=== PATIENT | female | born 1995 | race Caucasian/White ===

== ENCOUNTER 2016-05-25 22:14 | Observation (INO) | payer OTHER ==
[~2016-05-25] VITALS: Ht 169.6 cm; Wt 89.9 kg
[~2016-05-25 22:14] MED LIST: FAMO20T PO; ONDA4TAB6 PO; OXYC1TAB24 PO; PANT40TA3 PO; PNV91TAB3 PO; SULF1TAB35 PO
[2016-05-25 22:16] VITALS: BP 142/93; PULSE 97; RESP 28; O2SAT 97
--- NOTE | 2016-05-25 22:28 | ED.REPORT ---
HPI-Abd Pain F Under 40 Date of Service May 25, 2016 ED Provider: Aguilar Gordon MD A 20 year old female with a medical history including biliary colic and gallstones presents to the ED with severe abdominal pain onset just prior to arrival, after eating a grilled cheese sandwich. The patient was diagnosed with gallstones while but had to wait until after delivery for surgery. She delivered her child on 04/04/16 and has a cholecystectomy scheduled for tomorrow morning. She denies fever or dysuria. The patient was seen in the ED on 04/30/16 with similar symptoms. Nursing Notes Stated Complaint: ABDOMINAL PAIN Chief Complaint: Female Abdominal Pain Nursing Notes Reviewed: Yes Allergies: Coded Allergies: No Known Allergies (Verified Allergy, Unknown, 05/25/16) Scheduled Famotidine (Pepcid) 20 Mg Tablet 20 MG PO BID Pantoprazole DR (Pantoprazole DR) 40 Mg Tablet.dr 40 MG PO DAILY Pnv95/Ferrous Fumarate/FA ( Caplet) 28 Mg Iron-800 Mcg Tablet 1 EACH PO DAILY Sulfamethoxazole/Trimeth 800-160 mg (Bactrim DS 800-160 mg) 1 Each Tablet 1 TABLET PO BID Scheduled PRN Ondansetron (Zofran) 4 Mg Tablet 4 MG PO Q4H PRN PRN For Nausea oxyCODONE-Acetaminophen 5-325 mg (oxyCODONE-Acetaminophen 5-325 mg) 1 Each Tablet 1 TAB PO Q6H PRN PRN For Pain General Time Seen by MD: 22:27 Chief Complaint Abdominal pain Hx Obtained From: Patient Arrived By: Walk-in Sudden in Onset?: Yes Onset Occurred: Just prior to arrival Symptom Duration: Since onset Location: : Diffuse Quality: Painful Severity: Current: Severe Severity: Maximum: Severe Associated with: Reports: Dysuria, Denies: Fever Pertinent Negative: Relieved by nothing Context Related History: Reports: Cholelithiasis Recent Healthcare: Recent doctor visit, Previous diagnosis Similar Sx Previous: Yes Past Medical History Past Medical History Notes: PCP: Dr. Iram Veliz Past Medical History Biliary Colic - known gallstones Anxiety "Congenital Bunions" Reports: Depression Past Surgical History Bunionectomy D&C Isordil Foot surgeries Ophthalmic surgery D&C Sebaceous cyst removal Family History non-contributory Smoking History Never Smoker Social History Alcohol Use: In recovery Drug Use: In recovery, THC Other Social History: Good social support, Lives with children, Local resident Ambulatory Status Independent Review of Systems Constitutional: Denies: Fever Respiratory: Denies: Non-productive cough, Shortness of breath GI: Reports: Abdominal pain Female: Denies: Dysuria Complete sys rev & neg: except as marked. Physical Exam Initial Vital Signs Vital Signs (First) Date Time Temp Pulse Resp B/P Pulse Ox O2 Delivery O2 Flow Rate FiO2 05/25/16 22:16 36.6 97 28 142/93 97 Room Air Initial VS: Reviewed, Vital signs abnormal Head / Eyes: Atraumatic, Normocephalic ENT: Conjunctiva normal, No scleral icterus Neck: Supple, Full range of motion Skin: Warm, Dry, No cyanosis Neurologic: Alert, Oriented, Nonfocal General/Constitutional: Awake, Alert Distress / Hydration: Positive: Distress severe (pain) Behavior: Positive: Agitated, Hyperventilating Respiratory / Chest: Breath sounds NL, Breath sounds = bilat, No respiratory distress Cardiovascular: Heart rate NL, Regular rhythm, Heart sounds NL Abdomen: Soft Tenderness/Guarding/Rebound: Positive: Tender RUQ... (Moderate) Back: Full range of motion Left CVAT Interpretation & Diagnostics Lab Results Interpretation Result Diagram: 05/25/165 05/25/16 2235 Test 05/25/16 22:35 White Blood Count 7.9th/mm3 (3.8-10.1) Red Blood Count 4.40mil/mm3 (3.90-5.20) Hemoglobin 12.4g/dL (12.0-15.6) Hematocrit 38.0% (35.0-46.0) Mean Corpuscular Volume 86.4fL (81-100) Mean Corpuscular Hemoglobin 28.2pg (27.0-35.0) Mean Corpuscular Hemoglobin Concent 32.6% (32.0-37.0) Red Cell Distribution Width 12.7% (12.3-15.4) Platelet Count 275bil/L (150-400) Neutrophils (%) (Auto) 39.6% (40-74) Lymphocytes (%) (Auto) 48.5% (14-46) Monocytes (%) (Auto) 8.5% (4-12) Eosinophils (%) (Auto) 2.5% (0-5) Basophils (%) (Auto) 0.3% (0-3) Prothrombin Time 9.4sec (8.1-12.5) Prothromb Time International Ratio 0.88ratio Sodium Level 140mEq/L (134-144) Potassium Level 4.1mEq/L (3.5-5.2) Chloride Level 100mEq/L (97-108) Carbon Dioxide Level 26mmol/L (18-29) Blood Urea Nitrogen 12mg/dL (6-20) Creatinine 0.57mg/dL (0.57-1.00) Estimat Glomerular Filtration Rate 194mL/min (>59) Glucose Level 86mg/dL (60-99) Lactic Acid Level 1.3mmol/L (0.4-2.0) Calcium Level 9.6mg/dL (8.5-10.1) Magnesium Level 2.0mg/dL (1.6-2.6) Total Bilirubin < 0.2mg/dL (0.0-1.2) Aspartate Amino Transf (AST/SGOT) 22U/L (0-50) Alanine Aminotransferase (ALT/SGPT) 27U/L (0-32) Alkaline Phosphatase 58U/L (25-150) Total Protein 7.5g/dL (6.4-8.4) Albumin 4.4g/dL (3.4-5.0) Lipase 50U/L (13-60) Lab values outside NL range: no clinical significance. Re-Eval/Medical Decision Med Decision/Clinical Course 20-year-old female with known cholelithiasis who is scheduled for cholecystectomy tomorrow. She had one last meal before becoming him by mouth and an onset of right upper quadrant abdominal pain, more severe than usual. She has not had a fever. Labs are totally normal. There was some difficulty getting her pain under control. Her case was discussed with Dr. Gordon and she will be admitted to the hospital for her surgery as scheduled in the morning. Transitional orders were written. Source of Hx: Old records Re-Evaluation/Progress #1: Time of Eval: 22:42 Patient Status: Condition improved, Moderate relief Re-Evaluation/Progress Note: Patient's pain has reduced significantly. Re-Evaluation/Progress #2: Time of Eval: 23:50 Patient Status: Condition worsened Re-Evaluation/Progress Note: The patient's pain has returned. Discussed with patient lab results, diagnosis, and plan for admit. Patient agrees with plan for care and all questions were addressed. Consultation : Referral / Consult Name: Jaren Gordon MD Consulted With: Trauma surgeon Call Returned at: 23:47 Sanitation Inspector: Agrees with eval, Agrees with plan, Accepts admit Counseled Regarding: Diagnosis, Lab results, Need for admission Discharge & Departure Primary Impression: Biliary colic Additional Impression: Cholelithiasis Cholelithiasis location: gallbladder Cholecystitis presence: without cholecystitis Biliary obstruction: without biliary obstruction Qualified Code : K80.20 - Calculus of gallbladder without cholecystitis without obstruction Disposition: ADMITTED TO HOSPITAL Discharge Condition All VS Reviewed: Yes Condition: Stable Referrals: NOPCP (PCP) Scribe Attestation Portions of this note were transcribed by Beatris De Paz. I, Dr. Gordon, personally performed the history, physical exam, and medical decision-making; I reviewed and confirmed the accuracy of the information in the transcribed note. Signed by: Edd Ward, 05/25/2016, 23:58 Aguilar Gordon MD May 25, 2016 22:28 BEATRIS DE PAZ May 25, 2016 22:30
[2016-05-25] MEDS ORDERED: 0.9% Sodium Chloride 1,000 ML IV ONE (22:30)
[2016-05-25] MEDS: Ondansetron 2 mg/mL 2 mL Inj IVPUSH PRN ×2 (22:35→22:53)
[2016-05-25] MEDS: HYDROmorphone 0.5 mg/0.5 mL iSecure Syringe IVPUSH PRN ×4 (22:35→23:32)
[2016-05-25 23:04] LABS: BASOPHILS % (AUTO) 0.3 % (0-3); EOSINOPHILS % (AUTO) 2.5 % (0-5); INR 0.88 ratio; MONOCYTES % (AUTO) 8.5 % (4-12); Mean Corpuscular Hemoglobin 28.2 pg (27.0-35.0); Mean Corpuscular Volume 86.4 fL (81-100); NEUTROPHILS % (AUTO) 39.6 % (40-74); Platelet Count 275 bil/L (150-400)
[2016-05-25 23:14] LABS: Lipase 50 U/L (13-60)
[2016-05-25] MEDS ORDERED: HYDROmorphone 1 mg/mL Inj IVPUSH PRN (23:50)
[2016-05-25] MEDS ORDERED: Ondansetron 2 mg/mL 2 mL Inj IVPUSH PRN (23:55)
[2016-05-26] VITALS (8 sets, daily range): BP systolic 105–139; BP diastolic 56–83; PULSE 70–109; RESP 14–21; O2SAT 96–100
[2016-05-26] MEDS: Dextrose 5% 0.45% NaCl 1,000 ML IV SCH ×2 (00:06→09:16)
[2016-05-26] MEDS: Ondansetron 2 mg/mL 2 mL Inj IVPUSH PRN ×5 (02:40→12:47)
[2016-05-26] MEDS: HYDROmorphone 1 mg/mL Inj IVPUSH PRN ×5 (02:41→12:46)
--- NOTE | 2016-05-26 07:37 | NUR ---
Admission note Pt arrived from ER to [id number] approx at 0130. Admission assessment and screening completed. VSS. Medicated for pain and nausea. pump provided for pt. She is using it appropriately. No overt complications noted.
--- NOTE | 2016-05-26 09:40 | NUR ---
Pain/Transfer to OR Pt rating abd pain at 10/10, PRN IV Dilaudid effective for this. Pt reports intermittent nausea, PRN Zofran effective. No emesis. VSS, pt now transferred to OR for scheduled surgery. Pt calm and coop with care.
[2016-05-26] MEDS ORDERED: Lactated Ringer's 500 ML IV PRN (10:02)
[2016-05-26] MEDS ORDERED: Lactated Ringer's 1,000 ML IV SCH (10:02)
--- NOTE | 2016-05-26 10:04 | PCM.HPANE ---
Patient Data Surgeon Admitting Provider:Jaren Gordon MD Attending Provider:Jaren Gordon MD Primary Care Physician:Master Guillen MD Other Provider:Eitan Myles Anesthesia Reason for Visit Billiary Colic,Cholelithiasis Ht/WT & BMI Height (Feet): 5 Height (Inches): 6.75 Weight (Kilograms): 89.900 Body Mass Index 31.11 Allergies Coded Allergies: No Known Allergies (Verified Allergy, Unknown, 05/25/16) Past Anesthesia History Anesthesia History: Denies:: Anesthesia Reactions, Malignant Hyperthermia Diabetes History Hx Diabetes?: No MRSA MRSA: No Medications Hypertension Medication: No Home Meds Incl Beta Diamond: No Reported Medications Ondansetron (Zofran)4 Mg Tablet4 Mg PO Q4H PRN For Nausea 05/24/16 Sulfamethoxazole/Trimeth 800-160 mg (Bactrim DS 800-160 mg)1 Each Tablet1 Tablet PO BID Ref 0 05/24/16 Pnv95/Ferrous Fumarate/FA ( Caplet)28 Mg Iron-800 Mcg Tablet1 Each PO DAILY 05/24/16 Famotidine (Pepcid)20 Mg [id number] Mg PO BID 05/24/[address] 40 Mg Tablet.dr40 Mg PO DAILY Ref 0 05/24/16 oxyCODONE-Acetaminophen 5-325 mg 1 Each Tablet1 Tab PO Q6H PRN For Pain Ref 0 05/24/16 Discontinued Scripts Ibuprofen 600 Mg [id number] Mg PO Q6H PRN For Mild Pain #30 TABLET Prov:VITALIY ELKINS DO 04/05/16 Docusate Sodium (Colace)100 Mg Sejkuau444 Mg PO BID #30 CAPSULE Prov:VITALIY ELKINS DO 04/05/16 Famotidine (Pepcid)20 Mg Npovtq98 Mg PO BID #60 TABLET Prov:Edouard Matute MD 03/10/16 Ondansetron ODT 8 Mg Tab.rapdis8 Mg PO TID PRN For Nausea #10 TABLET Prov:Aguilar Gordon MD 11/26/15 History History of ENT Problems?: No Hx of Heart Problems?: No Cardiovascular History: Denies:: Congestive Heart Failure Heart Murmur Hypertension Irregular Heartbeat Hx of Respiratory Problem?: No Respiratory History: Denies:: Asthma COPD Emphysema Oxygen Administration Tuberculosis Use of C-PAP Machine Hx Neurologic Problems?: No Neurological History: Positive for:: Headaches Denies:: CVA Multiple Sclerosis Parkinson's Disease Seizures Hx of GI Problems?: Yes Gastrointestinal History: Positive for:: Gall Bladder Disease (current admission problem) Gastroesphageal Reflux Heartburn Denies:: Diverticulitis Gastrointestinal Bleeding Hepatitis Hiatal Hernia Rectal Bleeding Hx of Problems?: No Genitourinary History: Positive for:: Urinary Tract Infection (HX OF) Female Hx: Denies:: Currently (childbirth here 04/05/16, unknown if lactating) Endometriosis Pelvic Inflammatory Problems with Breasts? Skin History: Denies:: History Skin Disorders? Hx Musculoskeletal Problems?: Yes Musculoskeletal History: Positive for:: Musculoskeletal Trauma (hx of bunions , foot surgery) Denies:: Back Injury Joint Replacement Hx of Psycho/Social Problems?: Yes Psycho Social History: Positive for:: Anxiety Hx Depression Denies:: Bipolar Disorder Suicide Attempt Hx Surgeries?: Yes (Foot surgeries x7) Hx Any Other Health Problems?: Yes Other History: Denies:: Cancer Endocrine Disease Hospitalization Thyroid Disease History Blood Transfusions: Positive for:: Accept Blood Products? Denies:: Blood Transfusions Hx Diabetes: No Hx Alcohol Use: NoHx Substance Use: No Smoking Status: Never Smoker Have You Smoked inLast 12 mo: No Stop/Bang Treated for Sleep Apnea?: No Do You Have a CPAP Machine?: No S-Snoring: Do You Snore Loudly: No T-Tired: feel tired, fatigued: No O-Obsered: Observed not breath: No P-Blood Pressure: treated: No B- Body Mass Index > 35 kg/m2: No A- Age over 50: No N- Neck Large Circumference: No G- Gender Male: No GLEN Total Score: 0 GLEN Risk Assessment: Low Risk, <3 Yes Risk Assessment Category Category 1A: Patient has history of documented sleep apnea, and HAS NOT received any narcotic, sedative or anesthesia administration during this stay. Category 1B: Patient has history of documented sleep apnea, and HAS received any narcotic , sedative or anesthesia administration during this stay Category 2: Patient has SUSPECTED Obstructive Sleep Apnea, and HAS received any narcotic , sedative or anesthesia administration during this stay. Category 3: Patient has SUSPECTED Obstructive Sleep Apnea and HAS NOT received narcotic, sedative or anesthesia administration during this stay. Category 4: Outpatient in Procedural Areas with known sleep apnea or who screen positive for High Risk via the STOP/BANG questionnaire. Exam Exam Vital Signs Vital Signs Date Time Temp Pulse Resp B/P Pulse Ox O2 Delivery O2 Flow Rate FiO2 05/26/16 08:14 36.6 81 19 105/68 96 Room Air 05/26/16 01:56 75 20 115/47 99 Room Air 05/26/16 01:45 36.8 72 18 109/70 99 Room Air General Appearance: Alert, Oriented X3, Cooperative, No Acute Distress HEENT/AIRWAY: MP 2 Lungs: Clear to Auscultation, Normal Air Movement Heart: Exam Unremarkable, Regular Rate/Rhythm, No Murmurs/Rubs/Gallops Meds/Labs/Diagnostics Admission Meds Current Medications Sodium Chloride (Normal Saline) 1,000 ml @ 0 mls/hr Q0M ONCE IV Last administered on 05/25/16 22:35; Start 05/25/16 at 22:30; Stop 05/25/16 at 22:32; Status DC Lorazepam 0.5 mg 0.5 mg ONCE ONCE IVPUSH Last administered on 05/25/16 23:15; Start 05/25/16 at 23:10; Stop 05/25/16 at 23:11; Status DC Dextrose/Sodium Chloride (D5 1/2 Normal Saline) 1,000 ml @ 100 mls/hr Q10H IV Last administered on 05/26/16 00:06; Start 05/25/16 at 23:54 Labs Test 05/25/16 22:35 05/26/16 01:58 White Blood Count 7.9th/mm3 (3.8-10.1) Red Blood Count 4.40mil/mm3 (3.90-5.20) Hemoglobin 12.4g/dL (12.0-15.6) Hematocrit 38.0% (35.0-46.0) Mean Corpuscular Volume 86.4fL (81-100) Mean Corpuscular Hemoglobin 28.2pg (27.0-35.0) Mean Corpuscular Hemoglobin Concent 32.6% (32.0-37.0) Red Cell Distribution Width 12.7% (12.3-15.4) Platelet Count 275bil/L (150-400) Neutrophils (%) (Auto) 39.6% (40-74) Lymphocytes (%) (Auto) 48.5% (14-46) Monocytes (%) (Auto) 8.5% (4-12) Eosinophils (%) (Auto) 2.5% (0-5) Basophils (%) (Auto) 0.3% (0-3) Prothrombin Time 9.4sec (8.1-12.5) Prothromb Time International Ratio 0.88ratio Sodium Level 140mEq/L (134-144) Potassium Level 4.1mEq/L (3.5-5.2) Chloride Level 100mEq/L (97-108) Carbon Dioxide Level 26mmol/L (18-29) Blood Urea Nitrogen 12mg/dL (6-20) Creatinine 0.57mg/dL (0.57-1.00) Estimat Glomerular Filtration Rate 194mL/min (>59) Glucose Level 86mg/dL (60-99) Lactic Acid Level 1.3mmol/L (0.4-2.0) Calcium Level 9.6mg/dL (8.5-10.1) Magnesium Level 2.0mg/dL (1.6-2.6) Total Bilirubin < 0.2mg/dL (0.0-1.2) Aspartate Amino Transf (AST/SGOT) 22U/L (0-50) Alanine Aminotransferase (ALT/SGPT) 27U/L (0-32) Alkaline Phosphatase 58U/L (25-150) Total Protein 7.5g/dL (6.4-8.4) Albumin 4.4g/dL (3.4-5.0) Lipase 50U/L (13-60) Urine HCG, Qualitative Negative (Negative) Hold Urine Received (Received) Plan Impression Patient chart reviewed, patient interviewed and anesthestic plan with risks, benefits, and alternatives discussed, and informed consent obtained. NPO Status: 9pm ASA Physical Status: ASA2 Mod Systemic Disease Anesthetic Plan: GA Bene/Risks/Altern/Consents: Yes HP Complete Prior to Induction: Yes Devante Wolf MD May 26, 2016 09:03
[2016-05-26] MEDS ORDERED: Atropine 0.4 mg/mL Inj IVPUSH PRN (10:05)
[2016-05-26] MEDS ORDERED: hydrALAZINE 20 mg/mL Inj IVPUSH PRN (10:05)
[2016-05-26] MEDS ORDERED: MetoCLOpramide 5 mg/mL 2 mL Inj IVPUSH PRN (10:05)
[2016-05-26] MEDS ORDERED: EPHEDrine Sulfate 50 mg/mL Inj IVPUSH PRN (10:05)
[2016-05-26] MEDS ORDERED: hydrOXYzine Inj 25 MG/1 mL SDV IM PRN (10:05)
[2016-05-26] MEDS ORDERED: Phenylephrine 10,000 mCg/mL Inj IVPUSH PRN (10:05)
[2016-05-26] MEDS ORDERED: HYDROmorphone 1 mg/mL Inj IVPUSH PRN (10:05)
[2016-05-26] MEDS ORDERED: EPHEDrine Sulfate 50 mg/mL Inj IM PRN (10:05)
[2016-05-26] MEDS ORDERED: Ondansetron 2 mg/mL 2 mL Inj IVPUSH PRN (10:05)
[2016-05-26] MEDS ORDERED: Labetalol 5 mg/mL 4 mL Inj IV PRN (10:05)
[2016-05-26] MEDS: Lactated Ringer's 1,000 ML IV ONE ×2 (10:15→11:24)
--- NOTE | 2016-05-26 10:25 | HP ---
[address] [address] HISTORY AND PHYSICAL PATIENT: DIEGO POLLOCK : 1995 MR#: [id number] ADMIT: 05/26/2016 JOB ID: [id number] DATE: 05/26/2016 CHIEF COMPLAINT: Symptomatic cholelithiasis. HISTORY OF PRESENT ILLNESS: The patient is a 20-year-old female familiar to me, as I saw her in the office in consultation for symptomatic cholelithiasis. She was actually scheduled to undergo elective outpatient cholecystectomy today. Last night, however, after eating a grilled cheese sandwich, she developed a recurrent episode of right upper quadrant abdominal pain. This pain persisted, prompting a visit to the emergency department. Given the intractable nature of her pain, she was admitted to my service overnight for pain control with a plan to proceed with cholecystectomy today. Past medical, past surgical, social, and family history reviewed and unchanged from the original outpatient consultation. PHYSICAL EXAM: She has remained afebrile. This morning, her temperature is 36.6 degrees, heart rate 81 beats per minute. Blood pressure is 105/68. She is satting 96% on room air with a respiratory rate of 19 breaths per minute. In general, she appears uncomfortable but in no acute distress. Cardiovascular: She has a regular rate and rhythm. No appreciated murmurs, rubs, gallops. Pulmonary: Lungs clear to auscultation bilaterally. Abdomen is soft, nondistended but focally tender in the right upper quadrant. LABORATORIES: Her white blood cell count yesterday evening was normal at 7.9. Hematocrit was 38. Her LFTs were all within normal limits. ASSESSMENT AND PLAN: This is a 20-year-old female with symptomatic cholelithiasis, scheduled to undergo elective laparoscopic cholecystectomy today who was admitted last night for pain control. The plan is to proceed with laparoscopic cholecystectomy. I anticipate she may be able to go home after the procedure.
[2016-05-26] MEDS ORDERED: Bupivacaine-MPF 0.5% W/EPI 30 mL Inj INJ ONE (10:43)
--- NOTE | 2016-05-26 11:01 | NUR ---
Social Work Note: Screen Note Data& Assessment: EMR reviewed. Patient is a 20 year old female admitted on 05/26/2015 for Billiary Colic and Cholelithiasis. Pt has Josue WARNER for insurance coverage. Patient sees Master Guillen MD for primary care. Pt lives in [facility] and is independent at baseline. Pt is currently Stand by assist in her room. No discharge needs identified at this time. SW to continue to follow if any needs arise. Plan: Anticipated discharge home via POV when medically ready. No discharge needs identified at this time. SW to continue to follow if any needs arise. Kelsi Chamberlain LMSW, ACM
[2016-05-26] MEDS ORDERED: oxyCODONE-Acetamin 5-325 mg Tablet PO PRN (11:30)
[2016-05-26] MEDS: fentaNYL-PF 50 mCg/mL 2 mL Inj IVPUSH PRN ×2 (11:37→11:55)
--- NOTE | 2016-05-26 11:44 | PCM.ANEP1 ---
Post Anesthesia Phase 1 PACU Phase 1 Assessment Vital Signs Vital Signs Date Time Temp Pulse Resp B/P Pulse Ox O2 Delivery O2 Flow Rate FiO2 05/26/16 08:14 36.6 81 19 105/68 96 Room Air Anesthetic Administered: GA Level of Alertness: Awake, talking HERNANDEZ's with Equal Strength: Yes Pain: Yes (fentanyl given in PACU) Nausea or Vomiting: No Oxygen Delivery: Nasal Cannula Lungs: Clear to Auscultation, Normal Air Movement Summary VSS Devante Wolf MD May 26, 2016 11:44
--- NOTE | 2016-05-26 11:47 | OP ---
[address] [address] OPERATIVE REPORT PATIENT: DIEGO POLLOCK : 1995 MR#: [id number] ADMIT: 05/26/2016 JOB ID: [id number] DATE OF SURGERY: 05/26/2016 ANESTHESIA: General. PREOPERATIVE DIAGNOSIS(ES): Symptomatic cholelithiasis. POSTOPERATIVE DIAGNOSIS(ES): Symptomatic cholelithiasis. OPERATIVE PROCEDURE: Laparoscopic cholecystectomy. SURGEON: Dr. Jaren Gordon. ASSEMBLER RUBBER FOOTWEAR: Nadya Nicholas PA-C (the talent acquisition assistant was required for the safe and timely completion of the case). COMPLICATIONS: None. ESTIMATED BLOOD LOSS: 25 mL. CONDITION: Satisfactory. SPECIMEN: Gallbladder. FINDINGS: The gallbladder appeared minimally inflamed. INDICATION/SIGNIFICANT HISTORY: The patient is a 20-year-old female who has been experiencing episodic postprandial right upper quadrant abdominal pain. Ultrasound demonstrated cholelithiasis. She was scheduled for elective cholecystectomy today. However, last night she had a recurrent episode prompting a visit to the emergency department and hospitalization. Will proceed with a cholecystectomy as planned. OPERATIVE TECHNIQUE: The patient was taken to the operating room and placed in the supine position. General anesthesia was administered and the abdomen was prepped and draped in a standard surgical fashion. A procedural pause was performed. The abdomen was entered using a small supraumbilical incision with a 10 mm Optiview trocar. Pneumoperitoneum was achieved without complication. Local anesthetic was injected, followed by insertion of 5 mm ports in the subxiphoid as well as two in the right upper quadrant. There were quite a few adhesions to the gallbladder which were taken down. The gallbladder was then grasped and retracted cephalad. Dissection was begun to identify the cystic duct and cystic artery. The artery was avulsed off the gallbladder during the dissection. A clip was placed in this. Eventually the cystic duct was fully exposed and the inferior portion of the gallbladder was dissected off the cystic plate. Three clips were placed on the cystic duct and the cystic duct transected sharply. The remainder of the dissection of the gallbladder off the cystic plate was then completed. Gallbladder was removed through the umbilical port site. The surgical bed was inspected and made hemostatic where there was some bleeding on the liver edge. The umbilical fascia that was then closed using 0 PDS suture with a laparoscopic suture passer. The surgical bed was inspected one more time and found to be completely hemostatic. The lateral ports were then removed under direct visualization followed by release of pneumoperitoneum and removal of the remaining port. Skin was closed using 4-0 Monocryl. The entire procedure was well tolerated without complication.
--- NOTE | 2016-05-26 12:30 | PCM.ANEP2 ---
Post Anesthesia Evaluation ASA/CMS Post Anesthesia VS in Patient's Normal Range?: Yes Resp Stable; Airway Patent?: Yes CV Function & Hydration Stable: Yes Mental Status Recovered?: Yes Pain control Satisfactory?: Yes N/V Control Satisfactory?: Yes Devante Wolf MD May 26, 2016 12:30
[2016-05-26] MEDS ORDERED: Dexamethasone 4 mg/mL Inj ONE (15:31)
[2016-05-26] MEDS ORDERED: Succinylcholine Chloride 20 mg/mL 5 mL Inj ONE (15:31)
[2016-05-26] MEDS ORDERED: Ondansetron 2 mg/mL 2 mL Inj ONE (15:31)
[2016-05-26] MEDS ORDERED: EPHEDrine/NS 5 mg/mL 5 mL Syringe ONE (15:31)
[2016-05-26] MEDS ORDERED: Neostigmine 1 mg/mL 5 mL Inj ONE (15:31)
[2016-05-26] MEDS ORDERED: Propofol 10,000 mCg/mL 20 mL Inj ONE (15:31)
[2016-05-26] MEDS ORDERED: Rocuronium 10 mg/mL 5 mL Inj ONE (15:31)
[2016-05-26] MEDS ORDERED: fentaNYL-PF 50 mCg/mL 2 mL Inj ONE (15:31)
[2016-05-26] MEDS ORDERED: Glycopyrrolate 0.2 mg/mL 5 mL Inj ONE (15:31)
--- NOTE | 2016-05-26 15:32 | NUR ---
Discharge Note Pt back from OR at about 1245. Pt reported abd pain at 8/10, PRN Dilaudid and Percocet effective for pain. Pt eager to be discharged and go home. Reviewed discharge instructions, Rx, follow up appt, s/sx to report to MD. Care Notes provided. Pt discharge home with all belongings accompanied by grandmother.
--- NOTE | 2016-05-30 12:03 | PATH ---
SURGICAL PATHOLOGY Attending Physician:Jaren Gordon MD CASE STATUS: Signed Out PATIENT NAME: DIEGO POLLOCK PID: [id number] : 1995 DATE COLLECTED:05/26/2016 19:43 SPECIMEN: Gallbladder CLINICAL HISTORY: BILIARY COLIC, CHOLELITHIASIS 1). GALLBLADDER FINAL DIAGNOSIS: 1.GALLBLADDER: MILD CHRONIC CHOLECYSTITIS WITH CHOLELITHIASIS. NO EVIDENCE OF MALIGNANCY. ICD10 CODE K80.6 GROSS DESCRIPTION: The specimen is received in one formalin filled container labeled with the patient's name, sublabeled "gallbladder" and consists of an intact 9.0 x 4.5 x 3.5 CM gallbladder. The wall is 0.2-0.3 CM in thickness. The mucosa is a dark green in color. The lumen contains a dark green mucoid material and approximately 50-75 yellow-dan multifaceted calculi which range in size from 0.1-0.5 CM in greatest dimension. 5 account service representative sections are submitted in one cassette. 05/26/2016 DAC MICRO DESCRIPTION: See diagnosis. ICD-9 CODES: CPT CODES: 1: 18797 Electronically Signed Out Aashish Couch MD [facility]ology [facility] [address], [place] [address] Technical component performed at [facility], [facility] [address], [place], [address]
--- NOTE | 2016-08-12 12:45 | PCM.DC.SUR ---
Discharge Summary Date of Service: Date of Hospital Admission: May 25, 2016 at 01:00 Date of Operation(s): May 26, 2016 Date of Discharge: May, Diagnosis at Time of Discharge Primary Diagnosis: Symptomatic cholelithiasis Problems: Operation Laparoscopic cholecystectomy. Brief History and Physical: The patient is a 20-year-old female familiar to me, as I saw her in the office in consultation for symptomatic cholelithiasis. She was actually scheduled to undergo elective outpatient cholecystectomy today. Last night, however, after eating a grilled cheese sandwich, she developed a recurrent episode of right upper quadrant abdominal pain. This pain persisted, prompting a visit to the emergency department. Given the intractable nature of her pain, she was admitted to my service overnight for pain control with a plan to proceed with cholecystectomy today. Consultants: NONE Hospital Course: The patient went to recovery in stable condition. Pt back from OR at about 1245. Pt reported abd pain at 8/10, PRN Dilaudid and Percocet effective for pain. Pt eager to be discharged and go home. Reviewed discharge instructions, Rx, follow up appt, s/sx to report to MD. Care Notes provided. Pt discharge home with all belongings accompanied by grandmother. Pathology: Pending Disposition: Home Omeprazole (Omeprazole) 20 Mg Capsule. 20 MG PO DAILY copies to: Master Guillen MDagoNadya nicole PA-C Aug 12, 2016 12:45
== END 2016-05-26 15:32 | disposition home or self-care (01) ==
LOC: SED 22:14 → MOC 05-26 01:00
PROVIDERS: ADMIT General Practice; ATTEND General Practice
DX: K80.10 Calculus of gallbladder with chronic cholecystitis without obstruction (principal)
CPT/HCPCS: 36415; 47562; 80053; 81025; 83605; 83690; 83735; 85025; 85610; 88304; 96374; 96375; 96376; 99285; G0378; J0131; J0330; J1100; J1170; J2060; J2175; J2250; J2405; J2710; J7030; J7042; J7120

== ENCOUNTER 2016-07-29 04:38 | Emergency (ER) | payer OTHER ==
[~2016-07-29] VITALS: Ht 167.6 cm; Wt 92.7 kg
[2016-07-29 04:43] VITALS: BP 115/79; PULSE 85; RESP 22; O2SAT 100
--- NOTE | 2016-07-29 04:53 | ED.REPORT ---
HPI-Abd Pain F Under 40 Date of Service Jul 29, 2016 ED Provider: Aguilar Gordon MD Patient is a 21 year old female who presents to the ED complaining of RUQ abdominal pain that awoke her from sleep at 0330 this morning. Patient states that the pain is most prominent in her RUQ, but is sometimes present at her LUQ and periumbilical region. Patient reports associated nausea but denies vomiting. She has previously had a cholecystectomy on 05/26/2016 but denies any other abdominal surgeries. Patient denies a fever or diarrhea. Patient denies any alcohol or marijuana use. There is no one else at home that is currently ill with similar symptoms. Nursing Notes Stated Complaint: ABDOMINAL PAIN Chief Complaint: Female Abdominal Pain Nursing Notes Reviewed: Yes Allergies: Coded Allergies: No Known Allergies (Verified Allergy, Unknown, 07/29/16) No Active Prescriptions or Reported Meds General Time Seen by MD: 04:52 Chief Complaint Abdominal pain Hx Obtained From: Patient Arrived By: Walk-in Sudden in Onset?: No Onset Occurred: 1 - 4 hours ago Symptom Duration: Since onset Location: : RUQ Quality: Painful Radiation: : Abdomen upper Severity: Current: Severe Severity: Maximum: Severe Recent Healthcare: No recent doctor visit, No recent hospitalization Similar Sx Previous: Yes Past Medical History Past Medical History Notes: PCP: Dr. Iram Veliz Past Medical History Anxiety "Congenital Bunions" Reports: Depression Past Surgical History Bunionectomy D&C Isordil Foot surgeries Ophthalmic surgery D&C Sebaceous cyst removal Reports: Cholecystectomy Family History non-contributory Smoking History Never Smoker Social History Alcohol Use: In recovery Drug Use: In recovery, THC Other Social History: Good social support, Lives with children, Local resident Ambulatory Status Independent Review of Systems Constitutional: Denies: Chills, Fever GI: Reports: Abdominal pain, Nausea, Denies: Diarrhea, Vomiting Complete sys rev & neg: except as marked. Physical Exam Initial Vital Signs Vital Signs (First) Date Time Temp Pulse Resp B/P Pulse Ox O2 Delivery O2 Flow Rate FiO2 07/29/16 04:43 36.6 85 22 115/79 100 Room Air Initial VS: Reviewed, Vital signs normal Head / Eyes: Atraumatic, Normocephalic, PERRL ENT: Conjunctiva normal, No scleral icterus Neck: Supple, Full range of motion Skin: Warm, Dry, No cyanosis Neurologic: Alert, Oriented, Nonfocal Psychiatric: Mood/affect normal, Behavior normal, Normal thought content General/Constitutional: Awake, Alert Distress / Hydration: Positive: Distress moderate Appearance / Presentation: Positive: Uncomfortable Respiratory / Chest: Breath sounds NL, Breath sounds = bilat, No respiratory distress, No rales, No rhonchi, No wheezing Cardiovascular: Heart rate NL, Regular rhythm, Heart sounds NL, No murmurs Abdomen: Soft, No guarding, No rebound Tenderness/Guarding/Rebound: Positive: Tender RUQ... (Moderate) Back: No midline vertebral tend, No CVA tenderness Interpretation & Diagnostics Lab Results Interpretation Result Diagram: 07/29/16 0530 07/29/16 0530 Test 07/29/16 05:30 07/29/16 05:50 White Blood Count 7.4th/mm3 (3.8-10.1) Red Blood Count 4.44mil/mm3 (3.90-5.20) Hemoglobin 12.5g/dL (12.0-15.6) Hematocrit 37.4% (35.0-46.0) Mean Corpuscular Volume 84.2fL (81-100) Mean Corpuscular Hemoglobin 28.2pg (27.0-35.0) Mean Corpuscular Hemoglobin Concent 33.4% (32.0-37.0) Red Cell Distribution Width 13.1% (12.3-15.4) Platelet Count 239bil/L (150-400) Neutrophils (%) (Auto) 53.6% (40-74) Lymphocytes (%) (Auto) 35.3% (14-46) Monocytes (%) (Auto) 7.1% (4-12) Eosinophils (%) (Auto) 2.8% (0-5) Basophils (%) (Auto) 0.4% (0-3) Hold Blue Top Tube Received (Received) Sodium Level 138mEq/L (134-144) Potassium Level 3.7mEq/L (3.5-5.2) Chloride Level 104mEq/L (97-108) Carbon Dioxide Level 21mmol/L (18-29) Blood Urea Nitrogen 15mg/dL (6-20) Creatinine 0.64mg/dL (0.57-1.00) Estimat Glomerular Filtration Rate 168mL/min (>59) Glucose Level 82mg/dL (60-99) Calcium Level 8.8mg/dL (8.5-10.1) Magnesium Level 2.1mg/dL (1.6-2.6) Total Bilirubin 0.3mg/dL (0.0-1.2) Aspartate Amino Transf (AST/SGOT) 16U/L (0-50) Alanine Aminotransferase (ALT/SGPT) 17U/L (0-32) Alkaline Phosphatase 55U/L (25-150) Total Protein 7.1g/dL (6.4-8.4) Albumin 4.3g/dL (3.4-5.0) Lipase 30U/L (13-60) Hold Hall Top Tube Received (Received) Re-Eval/Medical Decision Med Decision/Clinical Course 21-year-old female status post cholecystectomy presents with upper abdominal pain. Evaluation was initiated her care will be turned over change of shift to the oncoming physician. Source of Hx: Old records Discharge & Departure Shift Change Sign-Out Patient Care Transferred: Yes Discussed Complaint(s): Yes Laboratory Evaluation: Ordered, not yet done Primary Impression: Abdominal pain Abdominal location: right upper quadrant Qualified Code: R10.11 - Right upper quadrant pain Discharge Condition All VS Reviewed: Yes Condition: Stable Referrals: Master Guillen MD (PCP) Care Transferred to: Dr. Lai Care Transferred at: 06:00 Edd Attestation Portions of this note were transcribed by Aruna Winter. I, Dr. Gordon personally performed the history, physical exam and medical decision-making; I reviewed and confirmed the accuracy of the information in the transcribed note. Signed by: Edd Dutta, 07/29/2016 0545 copies to: Master Guillen MD, Aguilar Valdez MD Jul 29, 2016 04:53 Aruna Winter Jul 29, 2016 05:04
[2016-07-29] MEDS ORDERED: 0.9% Sodium Chloride 1,000 ML IV ONE (05:02)
[2016-07-29] MEDS ORDERED: Pantoprazole 4 mg/mL 10 mL Inj IVPUSH ONE (05:05)
[2016-07-29] MEDS: HYDROmorphone 0.5 mg/0.5 mL iSecure Syringe IVPUSH PRN ×4 (05:32→07:18)
[2016-07-29] MEDS: Ondansetron 2 mg/mL 2 mL Inj IVPUSH PRN ×2 (05:32→06:29)
[2016-07-29 05:44] LABS: BASOPHILS % (AUTO) 0.4 % (0-3); EOSINOPHILS % (AUTO) 2.8 % (0-5); MONOCYTES % (AUTO) 7.1 % (4-12); Mean Corpuscular Hemoglobin 28.2 pg (27.0-35.0); Mean Corpuscular Volume 84.2 fL (81-100); NEUTROPHILS % (AUTO) 53.6 % (40-74); Platelet Count 239 bil/L (150-400)
[2016-07-29 06:05] LABS: Magnesium 2.1 mg/dL (1.6-2.6)
[2016-07-29 06:18] LABS: APPEARANCE,URINE CLEAR (CLEAR,HAZY); COLOR,URINE YELLOW (YELLOW); OCCULT BLOOD,URINE SMALL (NEGATIVE); PH,URINE 5.5 (5.0-8.0); UROBILINOGEN,URINE NORMAL (NORMAL)
[2016-07-29 06:30] VITALS: BP 118/80; PULSE 80; RESP 18; O2SAT 100
[2016-07-29] MEDS ORDERED: Iohexol 300 mg/mL 30 mL Inj PO ONE (06:50)
--- NOTE | 2016-07-29 08:39 | DRSVH ---
PROCEDURE: CT ABDOMEN AND PELVIS WITH CONTRAST ([id number]) INDICATIONS: upper abdominal pain, RLQ pain, hematuria TECHNIQUE: After the administration of oral and intravenous contrast, 5 mm thick sections acquired from the diap hragms to the symphysis. 5 mm thick coronal and sagittal reformats were performed. For radiation do se reduction, the following was used: automated exposure control, adjustment of mA and/or kV accordi ng to patient size. COMPARISON: [facility], CT, ABD/PELVIS W/CON (PN), 06/29/2013, 20:58. FINDINGS: Image quality: Excellent. ABDOMEN: Lung bases: Lung bases are clear. Heart size is normal. Solid organs: Liver and spleen are normal in size and enhancement. Gallbladder is surgically absent . Biliary system is non-dilated. Pancreas enhances normally. No adrenal nodules. Kidneys are norm al in size and enhancement, without hydronephrosis. Peritoneum and bowel: Stomach, small bowel, and colon loops are normal in caliber and wall thickness . No free fluid or air. Normal appendix. Nodes and vessels: No retroperitoneal or mesenteric adenopathy. Aorta and inferior vena cava are no rmal in caliber. Miscellaneous: No ventral hernias. PELVIS: Genitourinary: Urinary bladder is decompressed. Miscellaneous: No inguinal hernias or adenopathy. Bones: No suspicious bony lesions. There is mild grade 1 anterolisthesis of L5 on S1, associated wi th bilateral L5-S1 pars intra-articularis defects. Bilateral L5-S1 foraminal stenoses are present. No vertebral body compression fractures. IMPRESSION: 1. No acute process. 2. Normal appendix. 3. Bilateral L5-S1 pars interarticularis defects, associated with anterolisthesis of L5 on S1 and jay jay ateral L5-S1 foraminal stenoses, which could be further assessed with MRI, if clinically indicated. Dictated by: Farshad Galeas M.D. on 07/29/2016 at 8:36 Approved by: Farshad Galeas M.D. on 07/29/2016 at 8:38
[2016-07-29] MEDS ORDERED: LidocaineVisc 2%:Antacid 1:1 10 mL Syringe PO ONE (08:55)
[2016-07-29 11:09] VITALS: BP 103/63; PULSE 85; O2SAT 98
[2016-07-29] MEDS ORDERED: OMEP20CA11 PO (11:38)
[2016-07-29 12:07] VITALS: BP 108/68; PULSE 81; RESP 16; O2SAT 97
== END 2016-07-29 12:08 | disposition home or self-care (01) ==
LOC: SED 04:38
DX: R10.11 Right upper quadrant pain (principal); R31.9 Hematuria, unspecified; Z90.49 Acquired absence of other specified parts of digestive tract
CPT/HCPCS: 36415; 74177; 80053; 81000; 81025; 83690; 83735; 85025; 96374; 96375; 96376; 99285; J1170; J2405; J7030; Q9967